=== PATIENT | male | born 1935 | race Caucasian/White ===

== ENCOUNTER 2017-01-31 10:53 | Emergency (ER) | payer OTHER ==
[2017-01-31 11:35] LABS: BASOPHILS 0.2 % (0.0-2.0); EOSINOPHILS 0.4 % (0.0-6.0); HEMATOCRIT 33.6 % (42.0-54.0); HEMOGLOBIN 11.4 g/dL (14.0-18.0); LYMPHOCYTES 32.3 % (20.0-40.0); LYMPHOCYTES# 1.5 X 10^3uL (0.8-3.8); MEAN CELL VOLUME 94.1 fL (80.0-100.0); MEAN CORPUS. HGB CONCENTRATION 33.9 g/dL (32.0-36.0); MEAN CORPUSCULAR HEMOGLOBIN 31.9 pg (29.0-35.0); MEAN PLATELET VOLUME 7.8 fL (7.4-10.4); MONOCYTES 7.5 % (2.0-10.0); MONOCYTES# 0.4 X 10^3uL (0.2-1.0); NEUTROPHILS 59.6 % (54.0-75.0); NEUTROPHILS# 2.9 X 10^3uL (2.6-6.7); PLATELET COUNT 226 X 10^3uL (130-440); RED BLOOD COUNT 3.57 X 10^6uL (4.20-6.10); RED CELL DISTRIBUTION WIDTH 13.6 % (11.5-14.5); WHITE BLOOD COUNT 4.8 X 10^3uL (3.9-10.7)
[2017-01-31 11:48] LABS: BLOOD UREA NITROGEN 21 mg/dL (9-20); CALCIUM 9.6 mg/dL (8.4-10.2); CHLORIDE 103 mmol/L (98-107); CREATININE 1.1 mg/dL (0.7-1.3); GLUCOSE 165 mg/dL (70-100); MAGNESIUM 1.6 mg/dL (1.6-2.3); POTASSIUM 3.9 mmol/L (3.5-5.1); SODIUM 139 mmol/L (137-145)
[2017-01-31 12:00] LABS: TROPONIN I < 0.012 ng/mL (0.00-0.034)
--- NOTE | 2017-01-31 12:35 | ER NURSING DOCUMENTATION ---
Nurse's Notes [facility] Name:Devang Quigley Age:81 yrs Sex:Male :1935 Arrival Date:01/31/2017 Time:10:53 BedTrauma-B Private MD: Diagnosis:Palpitations Presentation: 01/31 11:03 Acuity: ANGIE 2 lp 11:05 Presenting complaint: Patient states: Heart palpitations. Transition of care: Home. AIR lp CAT ACTIVATION no other Not indicated at this time. 11:05 Method Of Arrival: Private Vehicle lp 11:06 Notified ED Physician of Dr. Franco notified. lp 12:31 Asprin Given n/a. lp Triage Assessment: 11:13 General: Appears in no apparent distress, Behavior is appropriate for age. Pain: Denies lp pain. EENT: No deficits noted. Neuro: No deficits noted. Cardiovascular: Capillary refill < 3 seconds. Respiratory: Airway is patent Trachea midline Respiratory effort is even, unlabored. GI: Abdomen is flat, non- distended. : No deficits noted. Derm: No deficits noted. Historical: - Allergies: No known drug Allergies; - Home Meds: 1. metformin 1,000 mg oral tab 1 tab 2 times per day 2. atorvastatin 80 mg oral tab 1 tab once daily 3. fenofibrate 160 mg oral tab 1 tab once daily 4. atenolol 50 mg oral tab 2 tabs once daily 5. tamsulosin 0.4 mg oral cp24 1 cap daily 6. levothyroxine 75 mcg oral cap 1 cap once daily 7. hydrochlorothiazide 12.5 mg oral cap 1 cap once daily 8. Januvia 100 mg oral tab 1 tab once daily 9. Viagra 100 mg oral tab 1 tab once daily approximately 1 hour before sexual activity 10. Prilosec 20 mg oral cpDR 1 cap 2 times per day - PMHx: Diabetes - NIDDM; Hypertension; Hyperlipidemia; urinary frequency; HYPOTHYROIDISM; GERD; - PSHx: eyelid surgery; Stents; L rotator cuff; - Tetanus: < 10 years. - Ebola Screening: : Patient negative for fever greater than or equal to 101.5 degrees Fahrenheit, and additional compatible Ebola Virus Disease symptoms. Patient denies exposure to infectious person. Patient denies travel to an Ebola-affected area in the 21 days before illness onset. . - Immunization history: Pneumococcal vaccine is up to date, Flu Vaccine < 1 year. - Social history: Smoking status: Patient states was never smoker of tobacco. Screenin:14 Infectious Disease Risk None. Abuse screen: Denies threats or abuse. Denies injuries lp from another. Nutritional screening: No deficits noted. Assessment: 11:13 Pain: Denies pain. Pain began No pain or pressure. Cardiovascular: No deficits noted. lp Vital Signs: 11:10 BP 143 / 83; Pulse 78; Resp 16; Temp 98.6(TE); Pulse Ox 92% ; Weight 82.1 kg; Height 5 lp ft. 11 in. (180.34 cm); Pain 0/10; 11:12 BP 143 / 83 (auto/); lp 11:17 Pulse 76 MON; Resp 24; lp 12:17 Pulse 68 MON; Resp 19; Pulse Ox 91% ; lp 12:23 BP 126 / 70 (auto/); lp 12:30 BP 126 / 70; Pulse 69; Resp 16; Pulse Ox 93% on R/A; lp 11:10 Body Mass Index 25.24 (82.10 kg, 180.34 cm) lp ED Course: 10:55 Patient arrived in ED. ama 11:00 Gabriel Franco MD is Attending Physician. sc 11:03 Triage completed. lp 11:04 Leah Telles, EARLENE is Primary Nurse. lp 11:14 Valuables Remains with patient Patient has correct armband on for positive lp identification. Placed in gown. Bed in low position. Call light in reach. Side rails up X 1. Cardiac Monitoring On for Nurse Monitoring only. Pulse Ox - RN Monitoring Only NIBP On - RN Monitoring Only. 11:14 Oxygen O2 via Not indicated at this time. lp 13:30 EKG attached lp Administered Medications: 11:30 Drug: NS 0.9% 1000 ml; Route: IV; Rate: 250 ml/hr; Site: right hand; lp 12:31 Follow up: Response: No adverse reaction; No change in condition lp 12:31 Follow up: IV Status: Infusion discontinued; IV Intake: 500ml lp Intake: 12:31 IV: 500ml; Total: 500ml. lp Outcome: 11:59 Discharge ordered by . sc 12:29 Discharged to home ambulatory. lp 12:29 Condition: stable 12:29 Instructed on discharge instructions, follow up and referral plans. medication usage. 12:35 Patient left the ED. lp 02/01 09:26 Discharge F/U Call: Unable to reach: no answer st Signatures: Kaity Valles RN RN Leah Jarvis RN RN Gabriel Umana MD MD sc Averdick, Andrew, Reg Reg ama
--- NOTE | 2017-01-31 12:35 | ER PHYSICIAN DOCUMENTATION ---
Physician Documentation [facility] Name:Devang Quigley Age:81 yrs Sex:Male :1935 Arrival Date:01/31/2017 Time:10:53 BedTrauma-B Private MD: Gabriel Casey Disposition: 01/31/17 11:59 Discharged to Home/Self Care. Impression: Palpitations. - Condition is Good. - Discharge Instructions: PALPITATIONS. - Medical Reconciliation form form. - Follow up: Private Physician; When: 4- 6 days; Reason: Recheck today's complaints, Continuance of care. - Problem is an acute exacerbation. - Symptoms are resolved. HPI: 01/31 11:56 This 81 yrs old Male presents to ER via Private Vehicle with complaints of sc racing heart. 11:56 The patient presents with a history of heart racing. Context: The symptoms occur at sc rest. Onset: The symptom(s)/episode began/occurred last year. Duration: The patient or guardian reports multiple episodes, that have now resolved, that are intermittent, the episodes last approximately 45 minute(s). Modifying factors: The symptoms are aggravated by nothing. The symptoms are alleviated by nothing. Associated signs and symptoms: The patient has no apparent associated signs or symptoms, Pertinent negatives: chest pain, nausea, SOB, syncope, vertigo, vomiting. Historical: - Allergies: No known drug Allergies; - Home Meds: 1. metformin 1,000 mg oral tab 1 tab 2 times per day 2. atorvastatin 80 mg oral tab 1 tab once daily 3. fenofibrate 160 mg oral tab 1 tab once daily 4. atenolol 50 mg oral tab 2 tabs once daily 5. tamsulosin 0.4 mg oral cp24 1 cap daily 6. levothyroxine 75 mcg oral cap 1 cap once daily 7. hydrochlorothiazide 12.5 mg oral cap 1 cap once daily 8. Januvia 100 mg oral tab 1 tab once daily 9. Viagra 100 mg oral tab 1 tab once daily approximately 1 hour before sexual activity 10. Prilosec 20 mg oral cpDR 1 cap 2 times per day - PMHx: Diabetes - NIDDM; Hypertension; Hyperlipidemia; urinary frequency; HYPOTHYROIDISM; GERD; - PSHx: eyelid surgery; Stents; L rotator cuff; - Tetanus: < 10 years. - Ebola Screening: : Patient negative for fever greater than or equal to 101.5 degrees Fahrenheit, and additional compatible Ebola Virus Disease symptoms. Patient denies exposure to infectious person. Patient denies travel to an Ebola-affected area in the 21 days before illness onset. . - Immunization history: Pneumococcal vaccine is up to date, Flu Vaccine < 1 year. - Social history: Smoking status: Patient states was never smoker of tobacco. ROS: 11:57 Constitutional: Negative for fever, chills, and weight loss. sc Eyes: Negative for injury, pain, redness, and discharge. ENT: Negative for injury, pain, and discharge. Neck: Negative for injury, pain, and swelling. Respiratory: Negative for shortness of breath, cough, wheezing, and pleuritic chest pain. Abdomen/GI: Negative for abdominal pain, nausea, vomiting, diarrhea, and constipation. Back: Negative for injury and pain. MS/Extremity: Negative for injury and deformity. Skin: Negative for injury, rash, and discoloration. 11:57 Neuro: Negative for headache, weakness, numbness, tingling, and seizure. sc 11:57 Cardiovascular: Positive for palpitations. Exam: Constitutional: This is a well developed, well nourished patient who is awake, alert, and in no acute distress. Head/Face: Normocephalic, atraumatic. Eyes: Pupils equal round and reactive to light, extra-ocular motions intact. Lids and lashes normal. Conjunctiva and sclera are non-icteric and not injected. Cornea within normal limits. Periorbital areas with no swelling, redness, or edema. ENT: Nares patent. No nasal discharge, no septal abnormalities noted. Tympanic membranes are normal and external auditory canals are clear. Oropharynx with no redness, swelling, or masses, exudates, or evidence of obstruction, uvula midline. Mucous membranes moist. Neck: Trachea midline, no thyromegaly or masses palpated, and no cervical lymphadenopathy. Supple, full range of motion without nuchal rigidity, or vertebral point tenderness. No meningismus. Chest/axilla: Normal chest wall appearance and motion. Nontender with no deformity. No lesions are appreciated. Respiratory: Lungs have equal breath sounds bilaterally, clear to auscultation and percussion. No rales, rhonchi or wheezes noted. No increased work of breathing, no retractions or nasal flaring. Abdomen/GI: Soft, non-tender, with normal bowel sounds. No distension or tympany. No guarding or rebound. No evidence of tenderness throughout. Back: No spinal tenderness. No costovertebral tenderness. Full range of motion. 11:57 Skin: Warm, dry with normal turgor. Normal color with no rashes, no lesions, and no sc evidence of cellulitis. 11:57 Cardiovascular: Rate: normal, Rhythm: regular. 11:57 Respiratory: Respirations: normal, Breath sounds: are normal. Vital Signs: 11:10 BP 143 / 83; Pulse 78; Resp 16; Temp 98.6(TE); Pulse Ox 92% ; Weight 82.1 kg; Height 5 lp ft. 11 in. (180.34 cm); Pain 0/10; 11:12 BP 143 / 83 (auto/); lp 11:17 Pulse 76 MON; Resp 24; lp 12:17 Pulse 68 MON; Resp 19; Pulse Ox 91% ; lp 12:23 BP 126 / 70 (auto/); lp 12:30 BP 126 / 70; Pulse 69; Resp 16; Pulse Ox 93% on R/A; lp 11:10 Body Mass Index 25.24 (82.10 kg, 180.34 cm) lp MDM: 11:00 Patient medically screened. sc 11:57 Differential diagnosis: arrythmia, dehydration. Data reviewed: vital signs, nurses sc notes, lab test result(s), EKG, and as a result, I will continue to observe the patient. Counseling: I had a detailed discussion with the patient and/or guardian regarding: the historical points, exam findings, and any diagnostic results supporting the discharge/admit diagnosis, lab results, the need for outpatient follow up, to return to the emergency department if symptoms worsen or persist or if there are any questions or concerns that arise at home. ED course: no palpitations here in ED but several years of symptoms failed capture on Holter suspicious for intermittent A fib. Discussed with patient, who is taking 325 ASA daily already and will fu in few days with PCP.. 13:30 EKG attached lp 01/31 11:36 Order name: CBC AUTO DIF, MDIF/RMOR IF IND EDMS 01/31 11:55 Interpretation: Normal Except: HEMOGLOBIN 11.4; HEMATOCRIT 33.6; mild anemia. sc 01/31 11:50 Order name: BASIC METABOLIC PANEL [facility] 01/31 11:55 Interpretation: Normal. sd 01/31 11:50 Order name: MAGNESIUM [facility] 01/31 11:55 Interpretation: Normal. sd 01/31 12:01 Order name: TROPONIN I [facility] Dispensed Medications: 11:30 Drug: NS 0.9% 1000 ml; Route: IV; Rate: 250 ml/hr; Site: right hand; lp 12:31 Follow up: Response: No adverse reaction; No change in condition lp 12:31 Follow up: IV Status: Infusion discontinued; IV Intake: 500ml lp Signatures: Leah Telles RN RN lp Gabriel Franco MD MD sd
== END 2017-01-31 12:35 | disposition home or self-care (01) ==
LOC: ER 10:53
DX: R00.2 Palpitations (principal); D64.9 Anemia, unspecified; I10 Essential (primary) hypertension; E11.9 Type 2 diabetes mellitus without complications; Z79.899 Other long term (current) drug therapy
CPT/HCPCS: 80048; 83735; 84484; 85025; 96360; 99284